=== PATIENT | female | born 1955 | race Caucasian/White ===

== ENCOUNTER 2017-01-19 10:57 | Inpatient (IN) | payer BC ==
[2017-01-19] VITALS (8 sets, daily range): BP systolic 86–112; BP diastolic 60–73
[~2017-01-19] VITALS: Ht 167.6 cm; Wt 72.3 kg
[~2017-01-19 10:57] MED LIST: ALPRAZOLAM1 MG PO; ATENOLOL50 MG PO; CYMBALTA60 M1 PO; DOXYCYCLINE HY100 MG PO; MORPHINE SULFAT15 MG PO; OMEPRAZOLE D/R20 M1 PO; PANTOPRAZOLE SO40 M1 PO; TIZANIDINE; TOPAMAX50 M1 PO; VIT D2; ZESTRIL5 MG PO
--- NOTE | 2017-01-19 11:09 | NUR ---
PER DR PIERCE SET UP FOR INTUBATION ANA PRIMARY NURSE AT BEDSIDE
--- NOTE | 2017-01-19 11:10 | NUR ---
Maryana BABB AT BEDSIDE TO ASSIST DR PIERCE WITH INTUBATION
--- NOTE | 2017-01-19 11:11 | NUR ---
RECEIVED PT T2B FOR SOB WITH CPAP ON ARRIVAL
--- NOTE | 2017-01-19 11:12 | NUR ---
ETOMIDATE 20 MG IVP WITH SUCC 100 MG FOR INTUBATION
--- NOTE | 2017-01-19 11:15 | NUR ---
PT INTUBATED BY DR PIERCE WITH GOOD TIDAL VOLUME WITH +CO2 DETECTOR.
[2017-01-19 11:38] LABS: BASOPHIL % 0.5 % (0-2); PLATELET COUNT 246 x10^3mcL (130-400)
[2017-01-19 11:41] LABS: RED CELL DISTRIBUTION WIDTH 17.3 % (11.5-14.5)
[2017-01-19 11:58] LABS: CK-MB 1.2 ng/mL (0-3.6); FREE T4 1.08 ng/dL (0.76-1.46); FREE THYROXINE INDEX 1.9 ug/dL (1.4-4.5); T4(THYROXINE) 5.3 ug/dL (4.7-13.3)
[2017-01-19 12:01] LABS: BILIRUBIN TOTAL 0.26 mg/dL (0.20-1.00); CALCIUM 8.4 mg/dL (8.5-10.1); CARBON DIOXIDE 17.1 mmol/L (21-32); CREATININE SERUM 3.4 mg/dL (0.6-1.0); TOTAL PROTEIN, SERUM 7.2 g/dL (6.4-8.2)
[2017-01-19 12:05] LABS: ALBUMIN 2.8 g/dL (3.4-5.0); T3 TOTAL 0.41 ng/mL
--- NOTE | 2017-01-19 12:09 | NUR ---
PT HAS MUTLIPLE SCABS ALL OF HER EXTREMITIES. NO OPEN WOUNDS NOTED.
[2017-01-19 12:10] LABS: UA SPECIFIC GRAVITY 1.025 (1.005-1.035); microscopic required? YES; urine erythrocyte NEGATIVE (NEGATIVE)
--- NOTE | 2017-01-19 12:10 | NUR ---
CHEST XRAY COMPLETED AT BEDSIDE FOR ET TUBE AND NG TUBE PLACEMENT
[2017-01-19 12:24] LABS: AMPHETAMINE QUAL UR NONE DETECTED (NEG <=1000)
[2017-01-19 12:34] LABS: ERYTHROCYTE SED RATE 101 mm/hr (0-30)
--- NOTE | 2017-01-19 12:45 | NUR ---
TITRATED FIO2 TO 50%, ALBERTINA FAUSTIN.
--- NOTE | 2017-01-19 13:06 | NUR ---
PT REMAINS RESTING IN A LOW FOWLERS POSITION IN LOW POSITIONED BED WITH SIDE RAILS UP X 2 AND SIDE RAILS UP X 2 AND CALL LIGHT WITHIN REACH
[2017-01-19 13:21] LABS: C REACTIVE PROTEIN 41.1 mg/dL (<=0.9)
--- NOTE | 2017-01-19 13:40 | NUR ---
PT IS INTUBATED AND SEDATED WITH 5 MCG/KG/MIN PROPOFOL, RSS 3 PT IS ABLE TO FOLLOW COMMANDS. PT IS INTUBATED WITH 7.5 ETT, 21 LL, OGT L NARE IN PLACE. PT HAS REJ S/L AND L WRIST IV PATENT AND INFUSING PROPOFOL. PT ON AC MODE, PEEP 5, FI02 50%, RATE 16, VT 450. BUL/BLL DIM, PT HAS SMALL AMOUNT OF BLOOD TINGED SECRETIONS REMOVED BY ORAL SUCTION AT THIS TIME, ORAL CARE PROVIDED. PT EYES OPEN TO VERBAL STIMULI AND PUPILS ARE 3 MM BILATERALLY AND BRISK. PT IS ABLE TO FOLLOW SIMPLE COMMANDS SUCH SQUEEZE MY HAND AND LOOK AT ME. PT SKIN IS COOL, DRY AND PALE IN COLOR. PT HAS MANY DRY SCABBINGS ON BLE/BUE/L SHOULER. PER AT BEDSIDE, PT "HAS BAD BLOOD AND HAS BEEN GETTING THESE WOUNDS BUT EVENTUALLY HEAL". PT STATES SHE DOES NOT DO DRUGS OR PICK AT HER SKIN. PT HAS BANSAL CATH IN PLACE DRAINING TO GRAVITY CLOUDY YELLOW URINE, NO SEDIMENT OR VAGINAL DISCHARGE NOTED AT THIS TIME. PT ABD IS SOFT, ROUND, SYMMETRICAL AND NONTENDER TO PALPATION. PT HAS HYPOACTIVE BOWEL SOUNDS X 4 QUADRANTS. PT IS ON ASSEMBLER CAMPER. WILL CONTINUE TO MONITOR PT AT THIS TIME.
--- NOTE | 2017-01-19 13:45 | NUR ---
REPORT CALLED TO ALBERTINA STRONG IN ICU AT THIS TIME
[2017-01-19] MEDS ORDERED: APAP/HYDROCODON1 T11 PO (13:54)
[2017-01-19] MEDS ORDERED: KEPPRA500 MG PO (13:54)
[2017-01-19] MEDS ORDERED: LAM100 PO (13:54)
--- NOTE | 2017-01-19 14:34 | NUR ---
PT ARRIVES ON UNIT AT THIS TIME WITH RT SABI AND ED RN ANA. PT IS TRANSFERRED FROM ED [facility] TO ICU BED WITHOUT INCIDENT. PT IS ATTACHED TO MONITOR AT THIS TIME. WILL CONTINUE TO MONITOR.
[2017-01-19] MEDS ORDERED: TOPIRAMATE50 M1 PO (14:54)
[2017-01-19] MEDS ORDERED: LORAZEPAM1 MG (14:56)
--- NOTE | 2017-01-19 16:00 | NUR ---
OBTAINED CONSENT AT BEDSIDE FROM PT CARLA BRIGGS, ALL QUESTIONS AND CONCERNS ADDRESSED AT THIS TIME. SEE CHART FOR DETAILS.
[2017-01-19 17:04] LABS: MAGNESIUM 1.5 mg/dL (1.8-2.4); PHOSPHOROUS 7.6 mg/dL (2.5-4.9)
--- NOTE | 2017-01-19 17:42 | NUR ---
RIJ COMPLETED AT THIS TIME BY , RADIOLOGY AT BEDSIDE TO CONFIRM PLACEMENT.
--- NOTE | 2017-01-19 18:05 | NUR ---
SABI RICARDO AT BEDSIDE TO TITRATE FI02 TO 40%. WILL CONTINUE TO MONITOR AT THIS TIME.
--- NOTE | 2017-01-19 20:00 | NUR ---
RECEIVED PT SEDATED ON PROPOFOL 5 MCG/KG/MIN WITH MRSS 5;OPENING EYES TO STIMULATION BUT DOES NOT FOCUS OR FOLLOW COMMANDS.CARDIAC SCOPE SHOWS SR WITH NO ECTOIPIES.INTUBATED ORALLY ETT # 7.5 LL 21 FIO2 40% TV 450 AC MODE RATE 16 PEEP 5 WITH EASY REGULAR BREATHING WITH O2 SAT 100%.RIGHT IJ TLC CONFIRMED PLACEMENT BY X-RAY BLUE PORT WITH PROPOFOL GTT ,WHITE PORT WITH NS AT 100 ML/H CONNECTED TO CVP MONITORING READING 12 FOB CALIBRATED PER PROTOCOL.LEFT NARES NGT INPLACE CHECKED WITH AIRBOLUS,CLAMPED AT THIS TIME.BANSAL TO GRAVITY DRAINAGE BAG DRAINING PALE YELLOW URINE.WITH DARK DISCOLORATION BLE,LEFT SHOULDER AND RIGHT ARM.BED ON LOW POSITION WITH SIDERAIL UP,CALL LIGHT WITHIN REACH.
--- NOTE | 2017-01-19 22:05 | NUR ---
ABG AND CT ABDN ORDERED BY DONE.ABG RESULT READ TO ORDERS MADE AND CARRIED OUT.
--- NOTE | 2017-01-19 22:10 | NUR ---
MADE AWARE OF PTS ABG RESULT.
--- NOTE | 2017-01-19 23:13 | NUR ---
IVF CHANGED TO NS 1L +2 AMPS NAHCO3 AT 110 ML/H X1 BAG.
[2017-01-20] VITALS (19 sets, daily range): BP systolic 110–167; BP diastolic 61–98; Ht 167.6 cm; Wt 72.3 kg
--- NOTE | 2017-01-20 00:03 | NUR ---
REMAINS SEDATED ON PROPOFOL 5 MCG/KG/MIN WITH MRSS 4 OPENING EYES TO STIMULATION AND RESISTING ORAL CARE.CARDIAC SCOPE SHOWS SR WITH NO ECTOPIES.RIGHT IJ TLC INTACT WITH ALL PORTS PATENT NS 1L+2 AMPS NAHCO2 AT 110 ML/H INFUSING.CVP READING 6 FOB.LEFT NARES NGT INPLACE CLAMPED.BANSAL DRAINING PALE YELLOW URINE ADEQUATE AMOUNT.REPOSITIONED WITH PILLOW SUPPORT ON BACK,VERY STIFF.BILATERAL HEELS OFFLOADED.VAP PER PROTOCOL DONE.BED ON LOW POSITION,CALL LIGHT WITHIN REACH.
[2017-01-20 01:16] LABS: RED BLOOD CELLS 3.8 M/mm3 (4.10-5.10)
[2017-01-20 01:37] LABS: IRON 15 ug/dL (50-170); TOTAL IRON BINDING CAPACITY 204 ug/dL (250-450)
--- NOTE | 2017-01-20 04:03 | NUR ---
SEDATION INCREASED TO 8 MCG/KG/MIN PT BUCKING RESPIRATOR,ON SAME VENT SETTING O2 SAT 100%.SCOPE REMAINS SR WITH NO ECTOPIES HR 86 MAINTAINING MEAN BP 98 MMHG RIGHT IJ TLC WITH NS 1L + 2 AMPS NAHCO3 AT 110 ML/H INFUSING WELL;CVP MONITORING READING 8 FOB.BANSAL DRAINING.RE-POSITIONED Q 2H VERY STIFF,NO PURPOSEFUL MOVEMENT AT THIS TIME.ORAL CARE PER VAP PROTOCOL DONE.BED ON LOW POSITION,CALL LIGHT WITHIN REACH.
[2017-01-20 05:15] LABS: BASOPHIL % 0.1 % (0-2); PLATELET COUNT 169 x10^3mcL (130-400)
[2017-01-20 05:26] LABS: RED CELL DISTRIBUTION WIDTH 17.3 % (11.5-14.5)
[2017-01-20 05:32] LABS: CALCIUM 8.1 mg/dL (8.5-10.1); CARBON DIOXIDE 18.2 mmol/L (21-32); CREATININE SERUM 1.9 mg/dL (0.6-1.0); POTASSIUM SERUM 3.8 mmol/L (3.5-5.1)
[2017-01-20 06:15] LABS: MAGNESIUM 2.1 mg/dL (1.8-2.4); PHOSPHOROUS 4.2 mg/dL (2.5-4.9)
--- NOTE | 2017-01-20 08:00 | NUR ---
ASSESSMENT DONE, SEDATED, AROUSABLE TO VERBAL STIMULI, AND OPENS EYES. PUPILS 4 BRISK BILAT. LIFTS BOTH ARMS UP, SOFT RESTRAINTS CONTINUED TO BUE FOR SAFETY. NO TRACKING. LUNGS WITH EXPIR WHEEZES RML LLL, COARSE BILAT. ORALLY INTUBATED, AC MODE RATE 176, FIO2 40%, PEEP 5, Vt 450, SAT 99% WITH VENT. ABD SOFT ACTIVE BOWEL SOUNDS, NO BM. EXPLAINED MEDS TXS AND PLAN OF CARE. WILL REASSESS.
--- NOTE | 2017-01-20 09:33 | NUR ---
ECHOCARDIOGRAM COMPLETED
--- NOTE | 2017-01-20 09:38 | NUR ---
DR LUNA HERE FOR ROUNDS WITH RESIDENTS, UPDATES GIVEN. WILL REASSESS.
--- NOTE | 2017-01-20 09:59 | NUR ---
PATIENT ROUNDS WITH DR. NIEVES AND RESIDENTS. CHARGE NURSE AND PRIMARY NURSE AT BEDSIDE. UPDATES PROVIDED. POC DISCUSSED. WILL CONTINUE TO MONITOR.
--- NOTE | 2017-01-20 10:10 | NUR ---
DR VIVAS HERE TO SEE PT AND ASSESS, UPDATES GIVEN.
--- NOTE | 2017-01-20 11:59 | NUR ---
Initial Nutrition Assessment Dx: Septic Shock, Respiratory Failure, Renal Failure PMHx: Chronic pancreatitis, HTN, GERD, anemia, recurrent UTIs, seizures PSHx: None Labs: BG 110 H, BUN 44 H, Cr 1.9 H, WBC 4 L, H/H 8.8/27 L; (01/19) ALB 2.8 L, AST 14 L, ALT 11 L, A1C 6, Lactic Acid 1.3 Meds: Ativan, D10, diprivan, humulin R, lactinex, phoslo, protonix, NS IV, theragran Current Diet Order: NPO (x1 day) (Intubated) Ht: 66", 5' 6". Wt: 158 lb, 72 kg. BMI: 25.7 kg/m2 (Overweight) IBW: 130 lb, 59 kg. %IBW: 122%. UBW: Unable to obtain Age: 61 Y/O F Food Allergies: Unable to obtain Skin: Discoloration BLE, L shoulder, R arm, scabs. Gerard 14. No pressure injuries, scabs pictures in chart. Edema: None GI: Abd soft, round. Active bowel sounds. Last BM: Unknown. Nursing Trigger: Nausea, Vomiting, Diarrhea >3 days; Admitted with potential risk diagnosis; Poor PO intakes >3 days; TF/TPN. Pt found with respiratory failure with sepsis secondary to aspiration pneumonia per doctor's notes. Per doctor's progress note 01/20, no acute events overnight, sedated with propofol 8 mcg/kg/min, NGT to L nare, dupree draining output 1225 ml. Pt seen +intubated, +ETT to vent support, +NGT to L nare, sedated on propofol at 8 mcg/kg/min, 3.5 ml/hr, providing 91 kcal. No family at bedside. Per RN, no diet order yet, was here this morning. Spoke with Dr. Alfaro, stated that will likely try to wean pt off propofol today, attempt to extubate, and start a PO diet. RD acknowledged, noted to doctor that nutrition support recommendations are in chart if unable to wean and extubate pt. Doctor acknowledged. Estimated Nutritional Needs Based CBW 158 lb, 72 kg. Ventilator in L/min: 7.76. Temperature: 98 F/36.6 C Energy: 1379 kcal/day (PSU 2003 for Ventilator Support) Protein: 86-108 gm/day (1.2-1.5 gm/kg for Intubated, Ventilator Support) Fluids: 1800 ml/day (25 ml/kg for Maintenance) or per doctor Nutrition Diagnosis Inadequate nutritional needs related to septic shock secondary to aspiration pneumonia as evidenced by current NPO status Intervention 1. If able to extubate pt, consider Swallow Evaluation per SERVICE UNIT OPERATOR. 2. If able to advance to PO diet, consider advance as tolerated to Regular diet, consistency per SERVICE UNIT OPERATOR. 3. If nutrition support is warranted, consider initiating of TF Nutren Pulmonary at 20 ml/hr, increase 10 ml Q6h to goal 40 ml/hr, Free Water Flush: 175 ml Q4h via NGT if/when medically appropriate. This provides 1440 kcal, 65 gm protein, 1801 ml free water daily. Monitor/Evaluate Goal: NPO <5-7 days; Diet Advancement Monitor: NPO status, diet advancement, labs, skin integrity, GI function, weights F/U in 2-3 days as HIGH risk (01/22-01/23)
--- NOTE | 2017-01-20 12:00 | NUR ---
1. If able to extubate pt, consider Swallow Evaluation per SUPERVISOR ENDLESS TRACK VEHICLE. 2. If able to advance to PO diet, consider advance as tolerated to Regular diet, consistency per SUPERVISOR ENDLESS TRACK VEHICLE. 3. If nutrition support is warranted, consider initiating of TF Nutren Pulmonary at 20 ml/hr, increase 10 ml Q6h to goal 40 ml/hr, Free Water Flush: 175 ml Q4h via NGT if/when medically appropriate. This provides 1440 kcal, 65 gm protein, 1801 ml free water daily.
--- NOTE | 2017-01-20 16:20 | NUR ---
DR BAPTISTE HERE TO SEE PT AND SPOKE WITH REGARDING PLAN OF CARE AND CONDITION OF PT, NOTED INCREASED EDEMA AND BNP.
--- NOTE | 2017-01-20 19:07 | NUR ---
REPORT GIVEN TO TARIQ ENG, CONDITION GUARDED.
--- NOTE | 2017-01-20 20:00 | NUR ---
RECEIVED PT SEDATED ON PROPOFOL 10 MCG/KG/MIN WITH MRSS 4; OPENS EYES TO TACTILE STIMULATION & VERBAL STIMULI, BUT DOES NOT FOCUS. PT FOLLOWED ONE SIMPLE COMMAND: MOVE FEET/TOES, PT RESPONDED BY LIGHTLY MOVING BILATERAL FEET/TOES. PERRL, PUPILS BILATERALLY 4MM, REACTION BILATERALLY 3MM. CARDIAC SCOPE SHOWS SR, AUSCULTATED S1 S2, NO ECTOPIES OBSERVED. INTUBATED ORALLY ETT # 7.5 LL21 FIO2 35% TV 450 AC MODE RATE 16 PEEP 5; EASY REGULAR BREATHING. RT AT BEDSIDE. O2 SATURATION 100% BLL DIMINISHED, RHONCHI AUSCULTATED. NS INFUSING @ 100ML/HR. PT CONNECTED TO CVP MONITORING. CVP READING 9 AT THIS TIME. FOB CALIBRATED PER PROTOCOL. LEFT NARE NGT IN PLACE AND SECURED, CHECKED WITH AIR BOLUS. NUTREN PULMONARY FEEDING STARTED, 10ML/HR TO BEGIN. WILL ADVANCE TO 20ML/HR IF PT TOLERATES. BANSAL TO GRAVITY DRAINAGE BAG, DRAINING CLEAR YELLOW URINE, NO SEDIMENT OBSERVED. DARK DISCOLORATION BLE, LEFT SHOULDER, RT ARM. DRY SCABS SIDEROGRAPHIST. ABDOMEN IS SOFT AND ROUND, ACTIVE BOWEL SOUNDS X 4, SYMMETRICAL NO VAGINAL BLEEDING/DISCHARGE AT THIS TIME. BED ON LOW POSITION, SIDERAIL UP, CALL LIGHT WITHIN REACH. LT/ RT WRIST RESTRAINTS IN PLACE FOR PT SAFETY/INJURY PREVENTION (PT ATTEMPTS TO PULL AT LINES/TUBES)
--- NOTE | 2017-01-20 22:00 | NUR ---
PT RESTLESS, ATTEMPTING TO SIT UP. PROPOFOL INFUSION INCREASED TO 15 MCG/KG/MIN.
--- NOTE | 2017-01-20 23:14 | NUR ---
PT CONTINUES TO BE RESTLESS, ATTEMPTING TO SIT UP DESPITE REORIENTING TO ROOM, SURROUNDINGS. PROPOFOL INCREASED TO 20 MCG/KG/MIN.
[2017-01-21] VITALS (12 sets, daily range): BP systolic 137–172; BP diastolic 63–95
--- NOTE | 2017-01-21 00:51 | NUR ---
NUTREN PULMONARY FEEDING INCREASED TO 20ML/HR WITH FWF 175 ML Q4H PT TOLERATING FEEDING. RESIDUAL 30 ML.
[2017-01-21 05:01] LABS: BASOPHIL % 0.4 % (0-2); PLATELET COUNT 174 x10^3mcL (130-400)
[2017-01-21 05:02] LABS: RED CELL DISTRIBUTION WIDTH 16.9 % (11.5-14.5)
[2017-01-21 05:45] LABS: POTASSIUM SERUM 3.1 mmol/L (3.5-5.1)
[2017-01-21 05:46] LABS: CALCIUM 8.3 mg/dL (8.5-10.1); CARBON DIOXIDE 23.7 mmol/L (21-32); CREATININE SERUM 1.2 mg/dL (0.6-1.0); MAGNESIUM 1.3 mg/dL (1.8-2.4)
--- NOTE | 2017-01-21 07:00 | NUR ---
RECEIVED REPORT FROM NOC SHIFT RN TARIQ, ALL QUESTIONS AND CONCERNS ADDRESSED AT THIS TIME. WILL ASSUME ALL CARE.
--- NOTE | 2017-01-21 07:15 | NUR ---
PT IS INTUBATED AND SEDATED ON 20 MCG/KG/MIN PROPOFOL, RSS 4 PT HAS BRISK RESPONSE TO STIMULI BUT DOES NOT FOLLOW COMMANDS. EYES OPEN TO VERBAL STIMULI AND PUPILS ARE BRISK 4 MM BILATERALLY. PT INTUBATED WITH 7.5 ETT, 21 LL, NGT L NARE, RIJ INFUSING CDI DRESSING. PT ON AC MODE, PEEP 5, FI02 35%, RATE 16, VT 450. BUL/BLL RHONCHI. PT RECEIVING NUTREN PULM 20 ML/HR WITH A FWF OF 175 Q4H, NO RESIDUALS AT THIS TIME. PT ABD IS SOFT, ROUND, SYMMETRICAL AND NONTENDER TO PALPATION. PT HAS ACTIVE BOWEL SOUNDS X 4 QUADRANTS. PT HAS BANSAL CATH IN PLACE DRAINING TO GRAVITY YELLOW URINE. NO VAGINAL DISCHARGE AT THIS TIME. PT HAS PALPABLE PULSES AND NO EDEMA PRESENT CURRENTLY. PT IS REPOSITIONED Q2H TO PREVENT SKIN BREAKDOWN. PT HAS SCABBING/DARK DISCOLORATIONS TO BUE/BLE/L SHOULDER. PT IS ON ADVANCE AGENT AND WITHIN CLOSE VIEW OF NURSES STATION. WILL CONTINUE TO MONITOR PT AT THIS TIME.
--- NOTE | 2017-01-21 07:19 | NUR ---
PT CARE ENDORSED TO DAY SHIFT ALBERTINA STRONG
--- NOTE | 2017-01-21 07:30 | NUR ---
ALL SEDATION TURNED OFF AT THIS TIME IN PREPARATION FOR CPAP TRIALS. TUBE FEEDING TURNED OFF AT THIS TIME WELL. WILL CONTINUE TO MONITOR PT.
--- NOTE | 2017-01-21 08:15 | NUR ---
PT PLACED ON CPAP AT THIS TIME BY LATOYA VERA
--- NOTE | 2017-01-21 08:15 | NUR ---
PT PLACED ON PSV 12, PEEP+5, FIO2 35%. VT450, RR20, O2 98%, HR 85, BP 161/84. PT TOLERATING CPAP WELL. ABG TO FOLLOW.
--- NOTE | 2017-01-21 10:18 | NUR ---
MS DO FOLLOW UP CXR AND CALL WITH RESULTS. PT PLACED ON CPAP 10/5, REPEAT ABG AND WEANING PARAMETERS. WILL CONTINUE TO MONITOR.
--- NOTE | 2017-01-21 10:56 | NUR ---
RADIOLOGY AT BEDSIDE FOR CXR. AT BEDSIDE.
--- NOTE | 2017-01-21 11:13 | NUR ---
PT DID WELL WITH WEANING PARAMETERS, PER DR.ZAIDI HANSON TO EXTUBATE. LATOYA RT AT BEDSIDE.
--- NOTE | 2017-01-21 11:23 | NUR ---
PT EXTUBATED AT 1117 AND KEPT ON RA FOR NOW. RESTRAINTS REMOVED AT 1117 WELL. WILL CONTINUE TO MONITOR.
--- NOTE | 2017-01-21 13:46 | NUR ---
PT BECOMING INCREASINGLY CONFUSED, PT REORIENTED TO TIME AND PLACE. PT WITHIN CLOSE VIEW OF NURSES STATION. WILL CONTINUE TO MONITOR PT.
--- NOTE | 2017-01-21 16:31 | NUR ---
MULTIPLE ATTEMPTS AT PLACING PATIENT ON BEDPAN TO HAVE A BM DONE, PT STATES SHE CANNOT GO ON A BEDPAN, EDUCATED PT ON SAFETY AND THAT SHE IS NOT STRONG ENOUGH TO STAND UP TO GET ON A COMMODE. PT VERBALIZED, "THIS SUCKS". APOLOGY GIVEN FOR THE INCONVIENCE AND PT VERBALIZED UNDERSTANDING. WILL CONTINUE TO MONITOR.
--- NOTE | 2017-01-21 16:41 | NUR ---
PT REQUESTING TO SIT ON EDGE OF BED, PT SAT ON EDGE OF BED FOR 2 MINUTES WITH MAXIMUM ASSIST. PT TIRED AND DESATING TO 85-89% ON 2L. PT PLACED BACK IN BED AT THIS TIME AND EDUCATED ON PHYSICAL THERAPY.
--- NOTE | 2017-01-21 17:50 | NUR ---
* ST NOTE * Pt seen at bedside after clinician receiving clearance from ICU nursing staff. Bedside dysphagia and oral mechanism exams completed. See evaluation report for further details. Pt tolerating 2/2 alternating PO trials of regular solid dinner meal via a teaspoon w/out s/s of aspiration but pt requiring extended amount of time (1-2 minutes+) to masticate each bolus. Pt however exhibiting minimal to occasional residue in oral cavity after PO intake of regular solids. Pt also tolerating 6/6 alternating PO trials of thin liquid apple juice via a cup as well as thin liquid milk via a straw, all w/out s/s of aspiration. Pt exhibiting clear voicing WFL w/out wet or gargly vocal quality after PO intake of thin liquids. Pt and caregivers/nursing education completed regarding aspiration precautions, with pt indifferent to clinician's recommendations but with caregivers/nursing agreeable with and verbalizing understanding of clinician's recommendations. It is thus recommended pt's PO diet consistency be modified to Mechanical soft-ground textures with thin liquids for all meals secondary to pt's decreased level of alertness and confusion, potentially secondary to sepsis and other medical comorbidities, with pt requiring assistance with feeding as well as close supervision during PO intake to assure aspiration precautions are in place. No further ST follow up recommended at this time. Pt and caregivers/nursing education completed regarding results of evaluation; benefits of abiding by aspiration precautions and recommended PO diet consistency; and prognosis for improvement; with pt and caregivers/nsg agreeable with and verbalizing understanding of clinician's recommendations. Recommend: - PO diet consistency of Mechanical soft-ground textures with thin liquids for all meals - Close supervision by caregivers/family/staff during PO intake to assure aspiration precautions are in place - Pt may require assistance with feeding - Feed pt only when pt is fully alert/awake No further ST follow up recommended at this time. G8996 CJ G8997 CI G8998 CI NOMS Level 2 Time In/Out 16:55 - 17:40
--- NOTE | 2017-01-21 17:54 | NUR ---
PT HAD BEDSIDE SWALLOW EVAL, PER SPEECH PATHOLOGIST PT OK TO TOLERATING MECH GROUND AND ASPIRATION PRECAUTIONS IN PLACE. NGT L NARE REMOVED AT THIS TIME. WILL CONTINUE TO MONITOR PT AT THIS TIME.
--- NOTE | 2017-01-21 18:50 | NUR ---
PT GIVEN BED BATH WITH GOWN AND LINEN CHANGE. CHG WIPES AND BANSAL CARE GIVEN PER PROTOCOL. WILL CONTINUE TO MONITOR PT AT THIS TIME.
--- NOTE | 2017-01-21 19:30 | NUR ---
PT AOX2 CONFUSED ABOUT PLACE, PUPILS REACTIVE, NO HEADACHE. NO DRAINAGE EENT, NO COUGH OR SECRETIONS, RESPIRATIONS EQUAL AND UN LABORED, LUNGS CLEAR BUL, DIM BLL, NO DISTRESS. HR 68, BP 137/77, MAP 110 CVP 13, CHEST WALL STABLE, NO CP DIZZINESS, OR SYNCOPE, S1S2 AUSCULTATED. SKIN APPROPRIATE FOR ETHNICITY, COOL AND DRY, CAP REFILL <3, PULSES PALPABLE. NO CONTRACTURES OR DEFORMITIES, GENERALIZED WEAKNESS, ABD SOFT, ROUND NONTENDER, BOWEL SOUNDS ACTIVE X4, NO BM. f/C IN PLACE DRAINING TO GRAVITY, URINE YELLOW, NO LABIAL EDEMA OR VAGINAL DRAINAGE. CALM AND COOPERATIVE, HAS FAMILY SUPPOPRT, WILL CONTINUE TO MONITOR.
--- NOTE | 2017-01-21 19:30 | NUR ---
REPORT RECEIVED FROM ALBERTINA STRONG, ALL QUESTIONS ADDRESSED, WILL TAKE OVER CARE.
--- NOTE | 2017-01-21 19:31 | NUR ---
PT HAD LARGE FORMED BM VIA COMMODE, PT TRANSFERRED FROM BED TO COMMODE WITH ASSISTANCE FROM MYSELF AND ALBERTINA MORRIS.
--- NOTE | 2017-01-21 20:28 | NUR ---
DR ADORNO AT BEDSIDE ORDERED XANAX, WILL CONTINUE TO MONITOR.
--- NOTE | 2017-01-21 20:45 | NUR ---
PT HAD BOWEL MOVEMENT, BROWN AND FORMED, WILL CONTINUE TO MONITOR.
[2017-01-22 03:14] VITALS: BP 154/67
[2017-01-22 05:21] LABS: PLATELET COUNT 184 x10^3mcL (130-400)
[2017-01-22 05:22] LABS: BASOPHIL % 0.3 % (0-2)
[2017-01-22 05:27] LABS: RED CELL DISTRIBUTION WIDTH 16.4 % (11.5-14.5)
--- NOTE | 2017-01-22 05:30 | NUR ---
DR BAPTISTE AT BEDSIDE, MEDS CHANGED TO PO, WILL CONTINUE TO MONITOR.
[2017-01-22 05:36] LABS: CALCIUM 8.2 mg/dL (8.5-10.1); CARBON DIOXIDE 20.9 mmol/L (21-32); MAGNESIUM 1.6 mg/dL (1.8-2.4); PHOSPHOROUS 3.5 mg/dL (2.5-4.9); POTASSIUM SERUM 3.3 mmol/L (3.5-5.1)
--- NOTE | 2017-01-22 06:55 | NUR ---
BED BATH GIVEN, CHG WIPES USED GOWN AND LINEN CHANGED, WILL CONTINUE TO MONITOR.
--- NOTE | 2017-01-22 07:21 | NUR ---
report given TO GRAY, ALL QUESTIONS ADDRESSED, WILL ENDORSE CARE.
--- NOTE | 2017-01-22 07:30 | NUR ---
REPORT RECEIVED FROM ALEXANDRA ENG. ALL QUESTIONS AND CONCERNS ADDRESSED BEDSIDE.
--- NOTE | 2017-01-22 07:50 | NUR ---
LATOYA RT AT BEDSIDE TO ADMINISTER BREATHING TX.
--- NOTE | 2017-01-22 07:50 | NUR ---
PATIENT RECEIVED LAYING IN BED WITH HOB ELEVATED TO 30 DEGREES. OPENS EYES TO VERBAL STIMULI. ALERT AND ORIENTED TO PERSON, PLACE AND TIME. N/C IN PLACE INFUSING 02 AT 2 L/MIN. CHEST EXPANSION SYMMETRICAL WITH NO SOB NOTED. RIJ IN PLACE INFUSING NS AT 100 ML/HR AND K-RIDER AT 50 ML/HR. SCD'S IN PLACE TO BLE. PATIENT ASSISTS WITH TURNING AND REPOSITIONING. NO S/S OF DISTRESS OR DISCOMFORT NOTED. BREAKFAST TRAY SERVED. CALL LIGHT WITHIN REACH. WILL CONTINUE TO MONITOR.
[2017-01-22 08:00] VITALS: BP 193/91
--- NOTE | 2017-01-22 08:26 | NUR ---
PATIENT C/O PAIN TO SHARP PAIN TO ABDOMEN 03/25. ADMINISTER NORCO 10/325 PO FOR PAIN. WILL CONTINUE TO MONITOR.
--- NOTE | 2017-01-22 08:30 | NUR ---
PATIENT PLACED ON BEDPAN AT THIS TIME.
--- NOTE | 2017-01-22 08:38 | NUR ---
PATIENT REMOVED FROM BEDPAN AND PROVIDED MARY-CARE. PATIENT PASSED 1 LARGE SOFT STOOL.
--- NOTE | 2017-01-22 09:00 | NUR ---
DR BRANNON, RESIDENTS AND SUNNY HEAD FILTER PRESS TENDER AT BEDSIDE FOR AM ROUNDS. POC DISCUSSED WITH PATIENT AND . OKAY PER DR BRANNON TO BRING OUTSIDE FOOD PATIENT HAS POOR APPETITE.
--- NOTE | 2017-01-22 09:35 | NUR ---
DR VIVAS AT BEDSIDE TO ASSESS PATIENT. PATIENT UPDATES PROVIDED BY NURSING.
--- NOTE | 2017-01-22 10:45 | NUR ---
LATOYA RT AT BEDSIDE TO DRAW ABG.
--- NOTE | 2017-01-22 12:00 | NUR ---
MYSELF, RT CHANG, AND RT ARACELI UNABLE TO OBTAIN ABG AT THIS TIME.
[2017-01-22 12:04] VITALS: BP 160/77
--- NOTE | 2017-01-22 15:50 | NUR ---
LATOYA RT AT BEDSIDE TO ADMINISTER BREATHING TX.
--- NOTE | 2017-01-22 15:59 | NUR ---
PATIENT TO BE TRANSFERRED TO [address] [place] [id number] BED A. REPORT CALLED TO BEV ENG WITH ALL QUESTIONS AND CONCERNS ADDRESSED. PATIENT REMOVED FROM ICU COMMUNICATION AND OUTREACH MANAGER AND PLACED ON PORTABLE COMMUNICATION AND OUTREACH MANAGER. PATIENT SAFELY TRANSFERRED TO [facility] BED WITH NO S/S OF DISTRESS NOTED. ATTEMPT MADE TO TELEPHONE PATIENT'S CARLA HOWEVER HE DID NOT ANSWER THE TELEPHONE. MESSAGE LEFT AT THIS TIME.
--- NOTE | 2017-01-22 16:19 | NUR ---
PATIENT BEING TRANSFERRED WITH CELL PHONE AND EYEGLASSES.
--- NOTE | 2017-01-22 16:19 | NUR ---
PATIENT BEING TRANSFERRED WITH CELL PHONE AND EYEGLASSES.
--- NOTE | 2017-01-22 16:38 | NUR ---
PATIENT ARRIVED FROM ICU AT THIS TIME. PATIENT IS AWAKE, ALERT AND O X [address] PUPILS 5MM, ROUND, SLUGGISH. TELE # [address] ON ROOM AIR NO DISTRESS NOTED, EXP WHEEZE BILATERAL. PULSES MODERATE, NO EDEMA NOTED. BOWEL SOUNDS ACTIVE. DENIES URINARY DIFFICULTIES. DARK DISCLORATIONS NOTED TO BUE AND DISCOLORATIONS AND DRY SCABS TO BLE PATIENT STATES SCABS ARE DUE TO A RASH. RIJ IN PLACE. IV TO LEFT WRIST IN PLACE. CALL LIGHT WITH IN REACH.
[2017-01-22 17:00] VITALS: BP 132/64
--- NOTE | 2017-01-22 17:40 | NUR ---
IN TO SEE PATIENT AND GIVE DUE MEDICATION (SEE EMAR). PATIENT IS DROWSY. ASSISTED WITH DINNER TRAY. NO DISTRESS NOTED.
--- NOTE | 2017-01-22 19:56 | NUR ---
PT RECIEVED AWAKE ALERT AND ORIENTED TO PLACE AND SELF WITH AT THE BEDSIDE,PT WAS SEEN WITH HOMES MEDS AT THE BEDSIDE PER PATIENT WANTED TO KNOW WHETHER SHE HAS BEEN RECIEVING HER HOME MEDS,PATIENT WAS ASK TO HAVE HIS RETURN HER MEDS AND WILL VERIFY FROM THE DOCTOR.REG RESP NO SOB,PT HAS A CENTRAL LINE TO THE RIJ WITH THE SITE PATENT AND INTACT AND FLUSHABLE,IV INFUSING WELL WITH THE SITE PATENT AND INTACT,SIDE RAILS ALL PADDED AND BED IN THE LOW POSITION AND LOCKED,CALL LIGHT MADE CLOSE TO THE PATIENT AND WILL CONTINUE TO MONITOR.
--- NOTE | 2017-01-22 22:00 | NUR ---
MADE DR RUANO AWARE PATIENT WANTS HER HOME MEDICATION TO BE ORDER,WILL CONTINUE TO MONITOR.
[2017-01-22 22:46] VITALS: BP 141/69
--- NOTE | 2017-01-23 01:44 | NUR ---
PT FORGETFUL AND KEEP GETTING OOB SO PATIENT WAS TRANSFER VIA BED TOO 205B,PT ALSO C/O OF DRY COUGH AND REQUESTING SOMETHING FOR CALL TO DR RUANO AND WAITING FOR ANY ORDERS,WILL CONTINUE TO MONITOR.
[2017-01-23 06:15] VITALS: BP 149/60
--- NOTE | 2017-01-23 06:38 | NUR ---
PT HAD A RESTING NIGHT V/S STABLE,NO CHANGE IN CONDITION AT THIS TIME,WILL CONTINUE TO MONITOR.
--- NOTE | 2017-01-23 06:39 | NUR ---
PT HAD A RESTING NIGHT NO CHANGER IN CONTINUE AT THIS TIME,KEPT CLEAN AND DRY TO TOUCH AND WILL CONTINUE TO MONITOR.
--- NOTE | 2017-01-23 07:30 | NUR ---
PATIENT AWAKE, ALERT, AND O X 4, BUT FORGETFUL AT TIMES, SZ PRECAUTIONS IN PLACE. TELE # [address], DENIES CHEST PAIN. PULSES MODERATE, NO EDEMA NOTED. ON ROOM AIR, NO DISTRESS NOTED. BOWERL SOUNDS ACTIVE. DENIES URINARY DIFFICULTY. RIJ IN PLACE INFUSING NS AT 100ML/HR. CALL LIGHT WITH IN REACH. SCDS AT THE BEDSIDE.
--- NOTE | 2017-01-23 09:35 | NUR ---
NOTIFIED DR. BAPTISTE AM K AND MAG NOT GIVEN. OK TO HOLD UNTIL RESULTS OF AM LABS.
[2017-01-23 09:42] VITALS: BP 106/58
[2017-01-23] MEDS ORDERED: FER300 PO (10:48)
[2017-01-23] MEDS ORDERED: VITAMIN C100 M2 PO (10:49)
[2017-01-23] MEDS ORDERED: LEVOFLOXACIN500 M1 PO (10:50)
[2017-01-23] MEDS ORDERED: LAC PO (10:50)
[2017-01-23] MEDS ORDERED: CLEOCIN HCL300 MG PO (10:50)
[2017-01-23 11:20] VITALS: BP 106/58
[2017-01-23 11:29] LABS: BASOPHIL % 0.4 % (0-2); PLATELET COUNT 215 x10^3mcL (130-400)
[2017-01-23 11:30] LABS: RED CELL DISTRIBUTION WIDTH 16.6 % (11.5-14.5)
[2017-01-23 11:36] LABS: CALCIUM 7.8 mg/dL (8.5-10.1); CARBON DIOXIDE 21.4 mmol/L (21-32); MAGNESIUM 1.5 mg/dL (1.8-2.4); PHOSPHOROUS 2.7 mg/dL (2.5-4.9); POTASSIUM SERUM 3.1 mmol/L (3.5-5.1)
--- NOTE | 2017-01-23 11:59 | NUR ---
Follow-up Nutrition Assessment Dx: Septic Shock, Respiratory Failure, Renal Failure PMHx: Chronic pancreatitis, HTN, GERD, anemia, recurrent UTIs, seizures Labs: K+ 3.3L, BG 123 H, FSBS:115-116, BUN 15, Cr 1, WBC 4.2 L, H/H 8.3/26 L; (01/19) ALB 2.8 L, AST 14 L, ALT 11 L, A1C 6, Lactic Acid 1.3 Meds: NS, ferrous sulfate, phoslo, lactinex, theragran, protonix, morphine, ativan, zofran, mag-ox, norco, D10 Current Diet Order: CCHO 60gm vegetarian (01/22) PO Intakes: 20% (01/23) Wt: 158 lb, 72 kg (01/20)- no new wt. BMI: 25.7 kg/m2 (Overweight) I/O:2946/650 (+2296ml) Skin: Discoloration BLE, L shoulder, R arm, scabs. Gerard 12. Edema: None GI: Abd soft. Active bowel sounds. Last BM: 1 (01/23) Pt found with respiratory failure with sepsis secondary to aspiration pneumonia per doctor's notes. Per doctor's progress note 01/22 Per nursing pt was urinating on herself throughout the night so a dupree catheter was re-inserted. Will attempt to discontinue dupree again today. Pt was extubated at 11:17am yesterday and is tolerating room air well with breathing treatments. Pt is anxious and required an IV push of ativan 0.5mg last night. She is lethargic this morning and difficult to arouse; does not respond to questions or participate in phyiscal exam. Plan to transfer pt to telemetry floor today to continue breathing treatments and IV abx for pneumonia. Pt lying on right side in bed, no acute distress. Breathing unlabored and even. Does not respond to questions or participate in exam; per nursing she received 0.5mg Ativan push for anxiety which could explain why she is difficult to arouse. She does open her eyes and track. 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 When asked if she remembers undergoing a swallow eval the pt looked confused and did not answer. Spoke to RN, reports the pt is forgetfull at times, the pt only ate 20% of breakfast, she picked at her hot cereal and drank orange juice, is tolerating meds whole w/o issues, states the pt will be D/C today in the PM. Estimated Nutritional Needs Based IBW: 130lbs (59kg) d/t s/p extubation (01/21) Energy: 6189-4557 kcal/day (30-35kcals/kg for PNA) Protein: 71-77 gm/day (1.2-1.3g/kg for PNA) Fluids: 8960-6977 ml/day (1ml/kcal for PNA) or per doctor Nutrition Diagnosis 1. Inadequate nutritional needs related to decreased appetite 2/2 general malaise as evidenced by pt meeting 20% of needs-Continues Intervention 1. Liberalize diet to Mechanical Soft Ground 2gm Na+. Max encouragement and assist at all meals. CCHO restriction is not warranted at this time. 2. If the pt's PO intakes continue to be poor, will liberalize diet further to Regular. Monitor/Evaluate Previous Goal: NPO <5-7 days-Met; Diet Advancement-Met Goal: Pt meeting at least 50% of needs w/ tolerance Monitor: PO intakes/tolerance , labs, skin integrity, GI function, weights F/U in 3-5 days as MODERATE risk (01/26-01/28)
--- NOTE | 2017-01-23 12:45 | NUR ---
NOTIFIED DR. BAPTISTE K 3.1, MAG 1.5. WILL MEDICATE ORDRED.
--- NOTE | 2017-01-23 13:24 | NUR ---
K 40MEQ PO AND MAG PO GIVEN (SEE EMAR) OK TO DISCHARGE PER DR. BAPTISTE.
--- NOTE | 2017-01-23 13:55 | NUR ---
DISCHARGE INSTRUCTIONS GIVEN TO PATIENT AND AT THIS TIME, BOTH VERBALIZE UNDERSTANDING. TELE # 1 REMOVED AND RETURNED TO [facility]. IV TO LEFT WRIST REMOVED, CATH INTACT. RIJ REMOVED CATH INTACT. ID BANDS REMOVED. PATIENT TO GO HOME WITH .
--- NOTE | 2017-01-23 15:00 | NUR ---
PT NOTES TIME 5930-2083 CLEARED BY RN FOR P.T. TX. PATIENT IS AWAKE & ALERT SITTING UP AT EOB. PRESENT AT BEDSIDE. PATIENT DECLINED TX. PATIENT'S STATED THAT PATIENT WILL BE D/C HOME SOON. PATIENT & EDUCATED IN SAFETY AT HOME FOR FALL PREVENTION W/ GOOD UNDERSTANDING. RN AWARE. PRIMARY THERAPIST WILL BE NOTIFIED. PVE
== END 2017-01-23 14:45 | disposition home or self-care (01) | DRG 871 ==
LOC: ED 10:57 → IC 12:29 → DU 01-22 16:49
PROVIDERS: Family Medicine; Specialist; ADMIT Family Medicine
PROC: 5A1945Z Respiratory Ventilation, 24-96 Consecutive Hours (ICD-10-PCS; principal; 2017-01-19)
PROC: 0BH17EZ Insertion of Endotracheal Airway into Trachea, Via Natural or Artificial Opening (ICD-10-PCS; 2017-01-19)
PROC: B543ZZA Ultrasonography of Right Jugular Veins, Guidance (ICD-10-PCS; 2017-01-19)
PROC: 02HV33Z Insertion of Infusion Device into Superior Vena Cava, Percutaneous Approach (ICD-10-PCS; 2017-01-19)
DX: A41.9 Sepsis, unspecified organism (principal); R65.21 Severe sepsis with septic shock; J96.01 Acute respiratory failure with hypoxia; N17.0 Acute kidney failure with tubular necrosis; E43 Unspecified severe protein-calorie malnutrition; J69.0 Pneumonitis due to inhalation of food and vomit; K86.1 Other chronic pancreatitis; E87.1 Hypo-osmolality and hyponatremia; L98.9 Disorder of the skin and subcutaneous tissue, unspecified; D64.9 Anemia, unspecified; G40.909 Epilepsy, unspecified, not intractable, without status epilepticus; K21.9 Gastro-esophageal reflux disease without esophagitis; I12.9 Hypertensive chronic kidney disease with stage 1 through stage 4 chronic kidney disease, or unspecified chronic kidney disease; Z96.89 Presence of other specified functional implants; N18.9 Chronic kidney disease, unspecified; E83.42 Hypomagnesemia; K86.81 Exocrine pancreatic insufficiency; E83.39 Other disorders of phosphorus metabolism; Z85.42 Personal history of malignant neoplasm of other parts of uterus; Z68.29 Body mass index [BMI] 29.0-29.9, adult; Z90.710 Acquired absence of both cervix and uterus; Z90.722 Acquired absence of ovaries, bilateral; Z98.0 Intestinal bypass and anastomosis status; Z87.891 Personal history of nicotine dependence; Z23 Encounter for immunization
CPT/HCPCS: 36556; 36600; 83880; 84439; 90732; 92610; 97110-GP; A4628; C9113; J0330; J1642; J1885; J1940; J2060; J2405; J2543; J2704; J3475; J3480; J3490; J7030; J7040; J7620; Q0092

== ENCOUNTER 2019-03-06 08:44 | Emergency (ER) | payer OTHER ==
[~2019-03-06] VITALS: Ht 165.1 cm; Wt 57.2 kg
[~2019-03-06 08:44] MED LIST changes: +APAP/HYDROCODON1 T11 PO; +CLEOCIN HCL300 MG PO; +FER300 PO; +KEPPRA500 MG PO; +LAC PO; +LAM100 PO; +LEVOFLOXACIN500 M1 PO; +LORAZEPAM1 MG; +TOPIRAMATE50 M1 PO; +VITAMIN C100 M2 PO
[2019-03-06 08:51] VITALS: Ht 165.1 cm; Wt 57.2 kg
[2019-03-06 09:57] LABS: BASOPHIL % 0.5 % (0-2); PLATELET COUNT 246 x10^3mcL (130-400)
[2019-03-06 09:59] LABS: RED CELL DISTRIBUTION WIDTH 15.1 % (11.5-14.5)
[2019-03-06 10:11] LABS: CALCIUM 9.3 mg/dL (8.5-10.1); CHLORIDE SERUM 105 mmol/L (98-107); CREATININE SERUM 0.9 mg/dL (0.6-1.0); GFR1 > 60 mL/min; GLUCOSE SERUM 129 mg/dL (74-106); POTASSIUM SERUM 3.5 mmol/L (3.5-5.1); SODIUM SERUM 135 mmol/L (136-145)
[2019-03-06 10:17] LABS: ALKALINE PHOSPHATASE 91 U/L (46-116); ALT/SGPT 14 U/L (14-59); AST/SGOT 13 U/L (15-37); BILIRUBIN TOTAL 0.29 mg/dL (0.20-1.00); LIPASE 90 IU/L (73-393); TOTAL PROTEIN, SERUM 8.1 g/dL (6.4-8.2)
[2019-03-06 10:42] LABS: microscopic required? YES; urine erythrocyte NEGATIVE (NEGATIVE)
[2019-03-06 12:56] VITALS: BP 146/62
== END 2019-03-06 12:56 | disposition home or self-care (01) ==
LOC: ED 08:44
PROVIDERS: Emergency Medicine
DX: R10.13 Epigastric pain (principal); R30.0 Dysuria; R19.7 Diarrhea, unspecified; I10 Essential (primary) hypertension; F41.9 Anxiety disorder, unspecified; R50.9 Fever, unspecified
CPT/HCPCS: J1885; J2060; J2405; J7030